=== PATIENT | female | born 1955 | race Caucasian/White ===

== ENCOUNTER 2020-11-05 13:18 | Inpatient (IN) | payer BC ==
[~2020-11-05] VITALS: Ht 162.6 cm; Wt 95.3 kg
[2020-11-05 13:58] LABS: HEMOGLOBIN 13.7 gm/dl (12.3-15.3); RED BLOOD COUNT 4.87 M/UL (4.00-5.10); WHITE BLOOD COUNT 11.1 K/UL (4.5-11.0)
[2020-11-05 14:11] LABS: BUN/CREATININE RATIO 12 (0-10)
[2020-11-06 03:36] LABS: HEMOGLOBIN 13.3 gm/dl (12.3-15.3); RED BLOOD COUNT 4.55 M/UL (4.00-5.10); WHITE BLOOD COUNT 8.6 K/UL (4.5-11.0)
[2020-11-06 03:59] LABS: BUN/CREATININE RATIO 21 (0-10)
[2020-11-06] MEDS ORDERED: AMLODIPINE-VAL1 EAC2 PO (11:04)
[2020-11-06] MEDS ORDERED: ASPIRIN EC81 MG PO (14:09)
[2020-11-06] MEDS ORDERED: DAILY VITE1 EACH PO (14:10)
[2020-11-06] MEDS ORDERED: ZINC50 M1 PO (14:10)
[2020-11-06] MEDS ORDERED: VITAMIN C1000 MG PO (14:11)
[2020-11-06] MEDS ORDERED: VITAMIN D350 MC3 PO (14:11)
[2020-11-07 03:20] LABS: HEMOGLOBIN 12.6 gm/dl (12.3-15.3); RED BLOOD COUNT 4.39 M/UL (4.00-5.10)
[2020-11-07 03:33] LABS: WHITE BLOOD COUNT 15.8 K/UL (4.5-11.0)
[2020-11-07 04:03] LABS: BUN/CREATININE RATIO 41 (0-10)
[2020-11-08 03:42] LABS: BUN/CREATININE RATIO 40 (0-10)
[2020-11-13 05:13] LABS: BUN/CREATININE RATIO 28 (0-10)
[2020-11-14 04:33] LABS: BUN/CREATININE RATIO 37 (0-10)
[2020-11-16 11:28] LABS: HEMOGLOBIN 13.5 gm/dl (12.3-15.3); RED BLOOD COUNT 4.48 M/UL (4.00-5.10); WHITE BLOOD COUNT 15.1 K/UL (4.5-11.0)
[2020-11-16 11:50] LABS: BUN/CREATININE RATIO 32 (0-10)
[2020-11-17 08:56] LABS: BUN/CREATININE RATIO 14 (0-10)
[2020-11-17 10:59] LABS: HEMOGLOBIN 13.1 gm/dl (12.3-15.3); RED BLOOD COUNT 4.5 M/UL (4.00-5.10); WHITE BLOOD COUNT 13.1 K/UL (4.5-11.0)
[2020-11-18 08:11] LABS: HEMOGLOBIN 12.5 gm/dl (12.3-15.3); RED BLOOD COUNT 4.2 M/UL (4.00-5.10); WHITE BLOOD COUNT 12.6 K/UL (4.5-11.0)
[2020-11-18 08:31] LABS: BUN/CREATININE RATIO 34 (0-10)
[2020-11-19 08:19] LABS: RED BLOOD COUNT 4.28 M/UL (4.00-5.10); WHITE BLOOD COUNT 15.7 K/UL (4.5-11.0)
[2020-11-19 08:46] LABS: BUN/CREATININE RATIO 25 (0-10)
--- NOTE | 2020-11-19 18:07 | NUR ---
SPOKE WITH , , AND THAT CHEST TUBE WAS NOT BUBBLING AFTER UNPRONING THE PATIENT. I WAS INFORMED IT WOULD NOT BE AN ISSUE UNLESS THE PATIENTS OXYGEN DROPPED.
[2020-11-20 05:12] LABS: HEMOGLOBIN 12.5 gm/dl (12.3-15.3); RED BLOOD COUNT 4.12 M/UL (4.00-5.10); WHITE BLOOD COUNT 16.9 K/UL (4.5-11.0)
[2020-11-20 05:19] LABS: BUN/CREATININE RATIO 17 (0-10)
[2020-11-21 08:16] LABS: BUN/CREATININE RATIO 19 (0-10)
[2020-11-21 08:37] LABS: HEMOGLOBIN 12.1 gm/dl (12.3-15.3); RED BLOOD COUNT 4.04 M/UL (4.00-5.10); WHITE BLOOD COUNT 17.2 K/UL (4.5-11.0)
[2020-11-22 05:35] LABS: HEMOGLOBIN 12.3 gm/dl (12.3-15.3); RED BLOOD COUNT 4.16 M/UL (4.00-5.10); WHITE BLOOD COUNT 20.7 K/UL (4.5-11.0)
[2020-11-23 05:56] LABS: HEMOGLOBIN 12.1 gm/dl (12.3-15.3); RED BLOOD COUNT 3.97 M/UL (4.00-5.10); WHITE BLOOD COUNT 23.8 K/UL (4.5-11.0)
[2020-11-24 08:20] LABS: HEMOGLOBIN 13.6 gm/dl (12.3-15.3); WHITE BLOOD COUNT 25.7 K/UL (4.5-11.0)
[2020-11-24 08:21] LABS: RED BLOOD COUNT 4.44 M/UL (4.00-5.10)
[2020-11-24 08:47] LABS: BUN/CREATININE RATIO 36 (0-10)
[2020-11-25 05:12] LABS: HEMOGLOBIN 12.5 gm/dl (12.3-15.3); RED BLOOD COUNT 4.08 M/UL (4.00-5.10); WHITE BLOOD COUNT 21.4 K/UL (4.5-11.0)
[2020-11-25 05:25] LABS: BUN/CREATININE RATIO 41 (0-10)
[2020-11-26 08:39] LABS: HEMOGLOBIN 12.6 gm/dl (12.3-15.3); RED BLOOD COUNT 4.02 M/UL (4.00-5.10); WHITE BLOOD COUNT 19.3 K/UL (4.5-11.0)
[2020-11-26 09:10] LABS: BUN/CREATININE RATIO 38 (0-10)
[2020-11-27 08:24] LABS: HEMOGLOBIN 12.9 gm/dl (12.3-15.3); RED BLOOD COUNT 4.16 M/UL (4.00-5.10); WHITE BLOOD COUNT 22.5 K/UL (4.5-11.0)
[2020-11-27 08:40] LABS: BUN/CREATININE RATIO 48 (0-10)
[2020-11-28 04:55] LABS: HEMOGLOBIN 11.8 gm/dl (12.3-15.3); RED BLOOD COUNT 3.88 M/UL (4.00-5.10); WHITE BLOOD COUNT 17.9 K/UL (4.5-11.0)
[2020-11-28 05:18] LABS: BUN/CREATININE RATIO 48 (0-10)
[2020-11-29 04:47] LABS: HEMOGLOBIN 12.1 gm/dl (12.3-15.3); RED BLOOD COUNT 3.98 M/UL (4.00-5.10); WHITE BLOOD COUNT 15.8 K/UL (4.5-11.0)
[2020-11-29 05:05] LABS: BUN/CREATININE RATIO 53 (0-10)
[2020-11-30 06:51] LABS: HEMOGLOBIN 11.2 gm/dl (12.3-15.3); RED BLOOD COUNT 3.67 M/UL (4.00-5.10); WHITE BLOOD COUNT 14.3 K/UL (4.5-11.0)
[2020-11-30 07:15] LABS: BUN/CREATININE RATIO 47 (0-10)
[2020-12-01 06:20] LABS: HEMOGLOBIN 10.5 gm/dl (12.3-15.3); RED BLOOD COUNT 3.46 M/UL (4.00-5.10); WHITE BLOOD COUNT 14.2 K/UL (4.5-11.0)
[2020-12-01 06:58] LABS: BUN/CREATININE RATIO 44 (0-10)
[2020-12-02 05:48] LABS: BUN/CREATININE RATIO 44 (0-10)
[2020-12-02 07:44] LABS: HEMOGLOBIN 11.1 gm/dl (12.3-15.3); RED BLOOD COUNT 3.68 M/UL (4.00-5.10)
[2020-12-02 07:58] LABS: WHITE BLOOD COUNT 25.9 K/UL (4.5-11.0)
== END 2020-12-02 13:46 | disposition expired | DRG 207 ==
LOC: ER1 13:18 → PROG CARE 16:32 → CCU 16:32 → CDU 16:32 → PROG CARE 11-06 14:14 → CCU 11-16 17:20
PROVIDERS: Family Medicine; Internal Medicine; Internal Medicine Pulmonary Disease; Physician Assistant Medical; Surgery; ADMIT Internal Medicine
PROC: 8E0ZXY6 Isolation (ICD-10-PCS; principal; 2020-11-05)
PROC: XW033E5 Introduction of Remdesivir Anti-infective into Peripheral Vein, Percutaneous Approach, New Technology Group 5 (ICD-10-PCS; 2020-11-05)
PROC: 3E0333Z Introduction of Anti-inflammatory into Peripheral Vein, Percutaneous Approach (ICD-10-PCS; 2020-11-05)
PROC: 5A09557 Assistance with Respiratory Ventilation, Greater than 96 Consecutive Hours, Continuous Positive Airway Pressure (ICD-10-PCS; 2020-11-05)
PROC: XW033H5 Introduction of Tocilizumab into Peripheral Vein, Percutaneous Approach, New Technology Group 5 (ICD-10-PCS; 2020-11-05)
PROC: 5A1955Z Respiratory Ventilation, Greater than 96 Consecutive Hours (ICD-10-PCS; 2020-11-18)
PROC: 0BH18EZ Insertion of Endotracheal Airway into Trachea, Via Natural or Artificial Opening Endoscopic (ICD-10-PCS; 2020-11-18)
PROC: 05HM33Z Insertion of Infusion Device into Right Internal Jugular Vein, Percutaneous Approach (ICD-10-PCS; 2020-11-18)
PROC: 0DH67UZ Insertion of Feeding Device into Stomach, Via Natural or Artificial Opening (ICD-10-PCS; 2020-11-26)
PROC: 3E0G76Z Introduction of Nutritional Substance into Upper GI, Via Natural or Artificial Opening (ICD-10-PCS; 2020-11-26)
PROC: 0W9B30Z Drainage of Left Pleural Cavity with Drainage Device, Percutaneous Approach (ICD-10-PCS; 2020-11-26)
DX: U07.1 COVID-19 (principal); J95.811 Postprocedural pneumothorax; J12.82 Pneumonia due to coronavirus disease 2019; J80 Acute respiratory distress syndrome; A41.89 Other specified sepsis; T88.6XXA Anaphylactic reaction due to adverse effect of correct drug or medicament properly administered, initial encounter; J95.859 Other complication of respirator [ventilator]; I10 Essential (primary) hypertension; E11.9 Type 2 diabetes mellitus without complications; Z80.3 Family history of malignant neoplasm of breast; Z79.899 Other long term (current) drug therapy; Z79.52 Long term (current) use of systemic steroids; Z23 Encounter for immunization; E87.70 Fluid overload, unspecified; Z51.5 Encounter for palliative care; T81.82XA Emphysema (subcutaneous) resulting from a procedure, initial encounter; Y84.8 Other medical procedures as the cause of abnormal reaction of the patient, or of later complication, without mention of misadventure at the time of the procedure; Y92.230 Patient room in hospital as the place of occurrence of the external cause
CPT/HCPCS: 31500; 36415; 36600; 71045; 80048; 80053; 82140; 82728; 82803; 82962; 83036; 83605; 83615; 83690; 83735; 83880; 84100; 84132; 84484; 85025; 85027; 85362; 85379; 85384; 85610; 85730; 86140; 87040; 87070; 87077; 87081; 87186; 87205; 93005; 94003; 94640; 94660; 94760; 96374; 96375; 97162; 97530-GP-CQ; 99285; C1751; C9113; J0330; J0456; J0696; J1100; J1205; J1335; J1650; J2248; J2250; J2270; J2370; J2543; J2704; J3010; J7030; J7040; J7050; P9047; Q0249